=== PATIENT | male | born 1955 | race African-American/Black ===

== ENCOUNTER 2020-06-30 10:53 | Inpatient (IN) | payer MEDICARE, OTHER ==
[~2020-06-30] VITALS: Ht 170.2 cm; Wt 63.5 kg
[~2020-06-30 10:53] MED LIST: ALBU18HF2 INH; AMLO10TA80 PO; ATOR20TA65 PO; BENA20TA10 PO; CARI350T27 PO; DOCU100T9 PO; ECON15CR11 TOP; MONT10TA96 PO; OMEP20CA14 PO
[2020-06-30] MEDS ORDERED: MORPHINE SULFATE 4 MG/ML CPJ (NOT FOR IM USE) IV STA (11:10)
[2020-06-30] MEDS ORDERED: ONDANSETRON HCL 4MG/2ML INJ IV STA (11:10)
[2020-06-30] MEDS ORDERED: SODIUM CHLORIDE 0.9% 1,000 ML IV ONE (11:15)
[2020-06-30] MEDS ORDERED: ONDANSETRON HCL 4MG/2ML INJ IV ONE (11:15)
[2020-06-30 11:54] LABS: BASOPHILS % 0.9 % (0.0-2.0); EOSINOPHILS % 2.4 % (0.0-5.0); HEMATOCRIT. 49.7 % (42.0-52.0); HEMOGLOBIN. 16.4 g/dL (14.0-18.0); LYMPHOCYTES % 22.5 % (20.0-50.0); MEAN CORPUSCULAR VOLUME 93.8 fL (80.0-94.0); MEAN PLATELET VOLUME 7.8 fl (7.4-10.4); MONOCYTES % 9.5 % (2.0-8.0); NEUTROPHILS % 64.7 % (40.0-76.0); PLATELET 271 x1000/uL (130-400); RED CELL DISTRIBUTION WIDTH 16.3 % (11.6-14.6)
[2020-06-30 12:04] LABS: INR 1.2; PARTIAL THROMBOPLASTIN TIME 28.1 sec (23.4-31.0); PROTHROMBIN TIME 12.8 sec (9.6-11.0)
[2020-06-30 12:05] LABS: CHLORIDE 104 mEq/L (98-107)
[2020-06-30 12:08] LABS: CREATINE KINASE 481 IU/L (39-308); ETHANOL BLOOD 50 mg/dL
[2020-06-30] MEDS ORDERED: ETOMIDATE 2MG/ML 10ML VIAL IV ONE (13:15)
[2020-06-30 15:15] LABS: CLARITY URINE CLEAR (CLEAR); COLOR URINE YELLOW (YELLOW); KETONES URINE NEGATIVE (NEGATIVE); LEUKOCYTE ESTERASE URINE NEGATIVE (NEGATIVE); NITRITE URINE NEGATIVE (NEGATIVE); OCCULT BLOOD URINE NEGATIVE (NEGATIVE); PROTEIN URINE TRACE (NEGATIVE); SPECIFIC GRAVITY URINE 1.016 (1.005-1.030); UROBILINOGEN URINE 0.2 E.U./dL (0.2-1.0)
[2020-06-30 15:37] LABS: *AMPHETAMINES SCREEN URINE NEGATIVE (NEGATIVE); *BARBITURATES SCREEN URINE NEGATIVE (NEGATIVE); *BENZODIAZEPINES SCREEN URINE NEGATIVE (NEGATIVE); *COCAINE SCREEN URINE NEGATIVE (NEGATIVE); CANNABINOID URINE SCREEN PRESUMTIVE POSITIVE (NEGATIVE); METHADONE URINE SCREEN NEGATIVE (NEGATIVE); PHENCYCLIDINE URINE SCREEN NEGATIVE (NEGATIVE)
[2020-06-30 15:38] LABS: OPIATES URINE SCREEN PRESUMTIVE POSITIVE (NEGATIVE)
[2020-06-30] MEDS ORDERED: ONDANSETRON HCL 4MG/2ML INJ IV PRN (16:30)
[2020-06-30] MEDS ORDERED: IPRATROPIUM/ALBUTEROL 0.5-3(2.5)MG/3ML NEB HHN PRN (16:30)
[2020-06-30] MEDS ORDERED: ACETAMINOPHEN 325MG TABLET PO PRN (16:30)
[2020-06-30] MEDS ORDERED: T4 PO (17:06)
[2020-06-30 17:14] VITALS: BP 153/76
[2020-06-30] MEDS: AMLODIPINE 10MG TABLET PO SCH (17:31)
[2020-06-30 18:41] VITALS: BP 153/76
[2020-06-30] MEDS: MORPHINE SULFATE 2 MG/ML CPJ (NOT FOR IM USE) IV PRN ×2 (19:14→23:49)
[2020-06-30 20:00] VITALS: BP 130/71
[2020-06-30] MEDS: ENOXAPARIN 40MG/0.4ML SYR SUBCUT SCH (20:37)
[2020-07-01] VITALS: BP 137/72
[2020-07-01 04:00] VITALS: BP 103/67
[2020-07-01 08:00] VITALS: BP 128/68
[2020-07-01] MEDS: AMLODIPINE 10MG TABLET PO SCH (08:31)
[2020-07-01] MEDS: HYDROCODONE/ACETAMINOPHEN 5/325MG TABLET PO PRN ×2 (08:32→18:14)
[2020-07-01 12:00] VITALS: BP 126/70
[2020-07-01] MEDS: MORPHINE SULFATE 2 MG/ML CPJ (NOT FOR IM USE) IV PRN (13:45)
[2020-07-01 15:23] VITALS: BP 118/66
[2020-07-01 20:00] VITALS: BP 130/76
[2020-07-01] MEDS: ENOXAPARIN 40MG/0.4ML SYR SUBCUT SCH (21:00)
[2020-07-02] VITALS: BP 142/73
[2020-07-02 04:00] VITALS: BP 143/71
[2020-07-02] MEDS: MORPHINE SULFATE 2 MG/ML CPJ (NOT FOR IM USE) IV PRN ×3 (04:44→23:07)
[2020-07-02 08:00] VITALS: BP 122/67
[2020-07-02] MEDS: AMLODIPINE 10MG TABLET PO SCH (10:16)
[2020-07-02 12:00] VITALS: BP 131/68
[2020-07-02] MEDS ORDERED: LIDOCAINE HCL/EPINEPHRINE 1%-EPI 1:100,000 20 ML VIAL ONE (12:05)
[2020-07-02] MEDS ORDERED: BUPIVACAINE HCL/PF 0.25% (2.5MG/ML) 10ML ONE (12:05)
[2020-07-02] MEDS ORDERED: VANCOMYCIN HCL 1 GM/VIAL ONE (12:06)
[2020-07-02] MEDS ORDERED: BACITRACIN 50,000 UNITS/VIAL ONE (12:06)
[2020-07-02] MEDS ORDERED: SKIN ADHESIVE 0.7 GM EA TOP ONE (12:27)
[2020-07-02] MEDS ORDERED: CLINDAMYCIN 900 MG PREMIX 50 ML IV ONE (13:07)
[2020-07-02] MEDS ORDERED: FENTANYL CITRATE/PF 50MCG/ML 2ML VIAL ONE (13:09)
[2020-07-02] MEDS ORDERED: LIDOCAINE HCL/PF 1% 10 MG/ML 5ML VIAL ONE (13:09)
[2020-07-02] MEDS ORDERED: PROPOFOL 200MG/20ML VIAL IV ONE (13:09)
[2020-07-02] MEDS ORDERED: LIDOCAINE HCL 2% JELLY 5ML ONE (13:12)
[2020-07-02] MEDS ORDERED: ONDANSETRON HCL 4MG/2ML INJ ONE (13:45)
[2020-07-02] MEDS ORDERED: METOCLOPRAMIDE HCL 10MG/2ML VIAL ONE (13:45)
[2020-07-02] MEDS ORDERED: HYDROCODONE/ACETAMINOPHEN 5/325MG TABLET PO PRN (14:15)
[2020-07-02] MEDS ORDERED: METOCLOPRAMIDE HCL 10MG/2ML VIAL IV NR (14:15)
[2020-07-02] MEDS ORDERED: MEPERIDINE HCL/PF 25MG/ML CPJ IV PRN (14:15)
[2020-07-02 14:33] LABS: *AMPHETAMINES SCREEN URINE NEGATIVE (NEGATIVE); CANNABINOID URINE SCREEN PRESUMTIVE POSITIVE (NEGATIVE)
[2020-07-02 14:34] LABS: *BARBITURATES SCREEN URINE NEGATIVE (NEGATIVE); *BENZODIAZEPINES SCREEN URINE NEGATIVE (NEGATIVE); *COCAINE SCREEN URINE NEGATIVE (NEGATIVE); METHADONE URINE SCREEN NEGATIVE (NEGATIVE); OPIATES URINE SCREEN PRESUMTIVE POSITIVE (NEGATIVE); PHENCYCLIDINE URINE SCREEN NEGATIVE (NEGATIVE)
[2020-07-02] MEDS: HYDROMORPHONE HCL/PF 2MG/ML CPJ IV PRN ×2 (14:55→15:36)
[2020-07-02 16:00] VITALS: BP 121/70
[2020-07-02] MEDS: CEFAZOLIN 1000MG PREMIX 50 ML IV SCH ×2 (17:57→23:06)
[2020-07-02 20:00] VITALS: BP 106/68
[2020-07-02] MEDS ORDERED: CEFAZOLIN SODIUM 1000MG/VIAL IV SCH (22:00)
[2020-07-02] MEDS: ENOXAPARIN 40MG/0.4ML SYR SUBCUT SCH (23:06)
[2020-07-03] VITALS: BP 132/73
[2020-07-03] MEDS: MORPHINE SULFATE 2 MG/ML CPJ (NOT FOR IM USE) IV PRN (03:35)
[2020-07-03 04:00] VITALS: BP 135/82
[2020-07-03 08:00] VITALS: BP 136/74
[2020-07-03] MEDS: AMLODIPINE 10MG TABLET PO SCH (08:27)
[2020-07-03] MEDS: HYDROCODONE/ACETAMINOPHEN 5/325MG TABLET PO PRN ×4 (08:27→20:53)
[2020-07-03] MEDS: CEFAZOLIN 1000MG PREMIX 50 ML IV SCH ×3 (08:27→23:47)
[2020-07-03 12:00] VITALS: BP 100/56
[2020-07-03 16:00] VITALS: BP 122/68
[2020-07-03] MEDS: FOLIC ACID 1MG TABLET PO SCH (17:04)
[2020-07-03] MEDS: DOCUSATE SODIUM 100MG CAPSULE PO SCH (17:04)
[2020-07-03] MEDS: THIAMINE HCL 100MG TABLET PO SCH (17:04)
[2020-07-03 19:45] LABS: HEMATOCRIT. 50.2 % (42.0-52.0); HEMOGLOBIN. 16.7 g/dL (14.0-18.0); MEAN CORPUSCULAR HEMOGLOBIN 31.4 pg (28.0-32.0); MEAN CORPUSCULAR VOLUME 94.2 fL (80.0-94.0); MEAN PLATELET VOLUME 7.7 fl (7.4-10.4); PLATELET 299 x1000/uL (130-400); RED BLOOD CELL COUNT 5.33 mill/uL (4.7-6.1); RED CELL DISTRIBUTION WIDTH 15.7 % (11.6-14.6)
[2020-07-03 20:00] VITALS: BP 129/66
[2020-07-03 20:06] LABS: CHLORIDE 100 mEq/L (98-107)
[2020-07-03] MEDS: ENOXAPARIN 40MG/0.4ML SYR SUBCUT SCH (21:16)
[2020-07-03] MEDS: POLYETHYLENE GLYCOL 3350 (17GM) 1 DOSE PACK PO SCH (21:17)
[2020-07-03 22:12] LABS: PLATELET ESTIMATE NORMAL
[2020-07-04] VITALS: BP 91/58
[2020-07-04] MEDS: HYDROCODONE/ACETAMINOPHEN 5/325MG TABLET PO PRN ×5 (02:43→23:26)
[2020-07-04 04:00] VITALS: BP 118/72
[2020-07-04 08:00] VITALS: BP 114/66
[2020-07-04] MEDS: THIAMINE HCL 100MG TABLET PO SCH (08:59)
[2020-07-04] MEDS: FOLIC ACID 1MG TABLET PO SCH (08:59)
[2020-07-04] MEDS: DOCUSATE SODIUM 100MG CAPSULE PO SCH ×2 (08:59→18:00)
[2020-07-04] MEDS: AMLODIPINE 10MG TABLET PO SCH (08:59)
[2020-07-04] MEDS: CEFAZOLIN 1000MG PREMIX 50 ML IV SCH (09:00)
[2020-07-04 12:00] VITALS: BP 120/70
[2020-07-04 16:00] VITALS: BP 118/7
[2020-07-04 20:00] VITALS: BP 122/73
[2020-07-04] MEDS: POLYETHYLENE GLYCOL 3350 (17GM) 1 DOSE PACK PO SCH (21:59)
[2020-07-04] MEDS: ENOXAPARIN 40MG/0.4ML SYR SUBCUT SCH (21:59)
[2020-07-05] VITALS: BP 124/73
[2020-07-05 08:00] VITALS: BP 121/69
[2020-07-05] MEDS: THIAMINE HCL 100MG TABLET PO SCH (09:27)
[2020-07-05] MEDS: DOCUSATE SODIUM 100MG CAPSULE PO SCH ×2 (09:27→17:32)
[2020-07-05] MEDS: FOLIC ACID 1MG TABLET PO SCH (09:27)
[2020-07-05] MEDS: AMLODIPINE 10MG TABLET PO SCH (09:29)
[2020-07-05] MEDS: MORPHINE SULFATE 2 MG/ML CPJ (NOT FOR IM USE) IV PRN (09:30)
[2020-07-05 12:00] VITALS: BP 124/70
[2020-07-05 16:00] VITALS: BP 129/75
[2020-07-05] MEDS: HYDROCODONE/ACETAMINOPHEN 5/325MG TABLET PO PRN (18:52)
[2020-07-05 18:56] VITALS: BP 137/78
[2020-07-05 20:00] VITALS: BP 122/77
[2020-07-05] MEDS: ENOXAPARIN 40MG/0.4ML SYR SUBCUT SCH (21:50)
== END 2020-07-05 21:55 | DRG 313 ==
LOC: ER 10:53 → 6EST 14:40 → EDBEDREQ 14:43 → ENRESERV 16:05
PROVIDERS: ADMIT Internal Medicine; ATTEND Internal Medicine
PROC: 0QSK04Z Reposition Left Fibula with Internal Fixation Device, Open Approach (ICD-10-PCS; principal; 2020-07-02)
PROC: 0QSH04Z Reposition Left Tibia with Internal Fixation Device, Open Approach (ICD-10-PCS; 2020-07-02)
DX: S82.852A Displaced trimalleolar fracture of left lower leg, initial encounter for closed fracture (principal); F10.129 Alcohol abuse with intoxication, unspecified; M47.812 Spondylosis without myelopathy or radiculopathy, cervical region; J44.9 Chronic obstructive pulmonary disease, unspecified; F12.90 Cannabis use, unspecified, uncomplicated; F17.210 Nicotine dependence, cigarettes, uncomplicated; G62.9 Polyneuropathy, unspecified; M48.02 Spinal stenosis, cervical region; Y90.2 Blood alcohol level of 40-59 mg/100 ml; I10 Essential (primary) hypertension; E78.5 Hyperlipidemia, unspecified; S00.83XA Contusion of other part of head, initial encounter; R26.9 Unspecified abnormalities of gait and mobility; Z20.822 Contact with and (suspected) exposure to COVID-19; Z82.49 Family history of ischemic heart disease and other diseases of the circulatory system; Z88.0 Allergy status to penicillin; Z79.899 Other long term (current) drug therapy; Z71.6 Tobacco abuse counseling; Y08.89XA Assault by other specified means, initial encounter; Y93.89 Activity, other specified; Y92.89 Other specified places as the place of occurrence of the external cause; Y99.8 Other external cause status
CPT/HCPCS: 36415; 70486; 71045; 72170; 73590; 73610; 73630; 76000; 76705; 80048; 80053; 80305; 80320; 81003; 82550; 84484; 85025; 86850; 86900; 87426; 93005; 93306; 97110; 97116; 97162; 97166; 97530; 97535; 99285; J0690; J1170; J1650; J2270; J2405; J2704; J2765; J3010; J3370; J3490; J7030; G0480

== ENCOUNTER 2020-07-05 22:00 | Inpatient (IN) | payer MEDICARE, OTHER ==
[~2020-07-05] VITALS: Ht 170.2 cm; Wt 63.5 kg
[~2020-07-05 22:00] MED LIST changes: +T4 PO
[2020-07-05 22:10] VITALS: BP 126/73
[2020-07-05 22:30] VITALS: BP 126/73
[2020-07-05] MEDS ORDERED: IPRATROPIUM/ALBUTEROL 0.5-3(2.5)MG/3ML NEB HHN PRN (22:30)
[2020-07-05] MEDS ORDERED: ONDANSETRON HCL 4MG/2ML INJ IV PRN (22:30)
[2020-07-05] MEDS: HYDROCODONE/ACETAMINOPHEN 5/325MG TABLET PO PRN (23:08)
[2020-07-06 08:00] VITALS: BP 119/73
[2020-07-06] MEDS: DOCUSATE SODIUM 100MG CAPSULE PO SCH ×2 (08:18→18:43)
[2020-07-06] MEDS: AMLODIPINE 10MG TABLET PO SCH (08:19)
[2020-07-06] MEDS: THIAMINE HCL 100MG TABLET PO SCH (08:19)
[2020-07-06] MEDS: FOLIC ACID 1MG TABLET PO SCH (08:19)
[2020-07-06] MEDS: HYDROCODONE/ACETAMINOPHEN 5/325MG TABLET PO PRN ×3 (08:22→18:43)
[2020-07-06 09:34] LABS: BASOPHILS % 0.4 % (0.0-2.0); EOSINOPHILS % 2.6 % (0.0-5.0); HEMATOCRIT. 49.1 % (42.0-52.0); HEMOGLOBIN. 16.3 g/dL (14.0-18.0); LYMPHOCYTES % 17.5 % (20.0-50.0); MEAN CORPUSCULAR HEMOGLOBIN 30.9 pg (28.0-32.0); MEAN CORPUSCULAR VOLUME 93.4 fL (80.0-94.0); MEAN PLATELET VOLUME 7.4 fl (7.4-10.4); MONOCYTES % 12.6 % (2.0-8.0); NEUTROPHILS % 66.9 % (40.0-76.0); PLATELET 356 x1000/uL (130-400); RED BLOOD CELL COUNT 5.26 mill/uL (4.7-6.1); RED CELL DISTRIBUTION WIDTH 15.3 % (11.6-14.6)
[2020-07-06 09:45] LABS: CHLORIDE 101 mEq/L (98-107)
[2020-07-06 20:00] VITALS: BP 140/80
[2020-07-06] MEDS: POLYETHYLENE GLYCOL 3350 (17GM) 1 DOSE PACK PO SCH (20:14)
[2020-07-06] MEDS: ENOXAPARIN 60MG/0.6ML SYR SUBCUT SCH (20:14)
[2020-07-06] MEDS ORDERED: ENOXAPARIN 40MG/0.4ML SYR SUBCUT SCH ×2 (21:00)
[2020-07-07] MEDS: ENOXAPARIN 60MG/0.6ML SYR SUBCUT SCH ×2 (06:13→17:31)
[2020-07-07 08:00] VITALS: BP 130/80
[2020-07-07 08:05] LABS: BASOPHILS % 0.8 % (0.0-2.0); EOSINOPHILS % 4.1 % (0.0-5.0); HEMATOCRIT. 48.9 % (42.0-52.0); HEMOGLOBIN. 16.2 g/dL (14.0-18.0); MEAN CORPUSCULAR HEMOGLOBIN 31.2 pg (28.0-32.0); MEAN PLATELET VOLUME 7.6 fl (7.4-10.4); MONOCYTES % 13.6 % (2.0-8.0); NEUTROPHILS % 62.5 % (40.0-76.0); PLATELET 345 x1000/uL (130-400); RED CELL DISTRIBUTION WIDTH 15.3 % (11.6-14.6)
[2020-07-07] MEDS: THIAMINE HCL 100MG TABLET PO SCH (08:27)
[2020-07-07] MEDS: DOCUSATE SODIUM 100MG CAPSULE PO SCH ×2 (08:27→17:31)
[2020-07-07] MEDS: FOLIC ACID 1MG TABLET PO SCH (08:27)
[2020-07-07] MEDS: AMLODIPINE 10MG TABLET PO SCH (08:27)
[2020-07-07] MEDS: HYDROCODONE/ACETAMINOPHEN 5/325MG TABLET PO PRN ×2 (08:28→15:20)
[2020-07-07 09:34] LABS: CHLORIDE 102 mEq/L (98-107)
[2020-07-07 09:43] LABS: PHOSPHORUS 2.7 mg/dL (2.5-4.9); TOTAL IRON BINDING CAPACITY 330 ug/dL (250-450)
[2020-07-07 11:50] LABS: PROSTRATE SPECIFIC AG TOTAL 0.76 ng/mL (0.0-4.0)
[2020-07-07] MEDS: CYANOCOBALAMIN 1000MCG/ML VIAL IM SCH (12:48)
[2020-07-07 20:00] VITALS: BP 123/61
[2020-07-07] MEDS: POLYETHYLENE GLYCOL 3350 (17GM) 1 DOSE PACK PO SCH (20:40)
[2020-07-08] MEDS: ENOXAPARIN 60MG/0.6ML SYR SUBCUT SCH ×2 (05:31→17:22)
[2020-07-08 08:00] VITALS: BP 131/86
[2020-07-08] MEDS: AMLODIPINE 10MG TABLET PO SCH (08:10)
[2020-07-08] MEDS: CYANOCOBALAMIN 1000MCG/ML VIAL IM SCH (08:10)
[2020-07-08] MEDS: FOLIC ACID 1MG TABLET PO SCH (08:10)
[2020-07-08] MEDS: DOCUSATE SODIUM 100MG CAPSULE PO SCH ×2 (08:10→17:00)
[2020-07-08] MEDS: THIAMINE HCL 100MG TABLET PO SCH (08:10)
[2020-07-08] MEDS: HYDROCODONE/ACETAMINOPHEN 5/325MG TABLET PO PRN ×2 (08:11→18:10)
[2020-07-08 20:00] VITALS: BP 118/77
[2020-07-08] MEDS: POLYETHYLENE GLYCOL 3350 (17GM) 1 DOSE PACK PO SCH (21:00)
[2020-07-09] MEDS: ENOXAPARIN 60MG/0.6ML SYR SUBCUT SCH ×2 (05:56→16:58)
[2020-07-09 08:30] VITALS: BP 125/68
[2020-07-09] MEDS: CYANOCOBALAMIN 1000MCG/ML VIAL IM SCH (09:47)
[2020-07-09] MEDS: AMLODIPINE 10MG TABLET PO SCH (09:47)
[2020-07-09] MEDS: FOLIC ACID 1MG TABLET PO SCH (09:47)
[2020-07-09] MEDS: THIAMINE HCL 100MG TABLET PO SCH (09:47)
[2020-07-09] MEDS: DOCUSATE SODIUM 100MG CAPSULE PO SCH ×2 (09:47→16:57)
[2020-07-09] MEDS: HYDROCODONE/ACETAMINOPHEN 5/325MG TABLET PO PRN ×2 (10:19→17:13)
[2020-07-09 20:00] VITALS: BP 120/67
[2020-07-09] MEDS: POLYETHYLENE GLYCOL 3350 (17GM) 1 DOSE PACK PO SCH (21:53)
[2020-07-10] MEDS: ENOXAPARIN 60MG/0.6ML SYR SUBCUT SCH ×2 (06:03→17:02)
[2020-07-10 08:00] VITALS: BP 119/79
[2020-07-10 08:57] LABS: BASOPHILS % 0.9 % (0.0-2.0); HEMATOCRIT. 50.3 % (42.0-52.0); HEMOGLOBIN. 16.5 g/dL (14.0-18.0); LYMPHOCYTES % 21.8 % (20.0-50.0); MEAN CORPUSCULAR VOLUME 94.6 fL (80.0-94.0); MEAN PLATELET VOLUME 7.4 fl (7.4-10.4); MONOCYTES % 10.4 % (2.0-8.0); NEUTROPHILS % 61.9 % (40.0-76.0); PLATELET 350 x1000/uL (130-400); RED BLOOD CELL COUNT 5.32 mill/uL (4.7-6.1); RED CELL DISTRIBUTION WIDTH 15.1 % (11.6-14.6)
[2020-07-10] MEDS: HYDROCODONE/ACETAMINOPHEN 5/325MG TABLET PO PRN ×2 (08:58→15:47)
[2020-07-10] MEDS: FOLIC ACID 1MG TABLET PO SCH (08:59)
[2020-07-10] MEDS: DOCUSATE SODIUM 100MG CAPSULE PO SCH ×2 (08:59→17:02)
[2020-07-10] MEDS: CYANOCOBALAMIN 1000MCG/ML VIAL IM SCH (08:59)
[2020-07-10] MEDS: THIAMINE HCL 100MG TABLET PO SCH (08:59)
[2020-07-10] MEDS: AMLODIPINE 10MG TABLET PO SCH (08:59)
[2020-07-10 09:03] LABS: CHLORIDE 106 mEq/L (98-107)
[2020-07-10 20:00] VITALS: BP 122/74
[2020-07-10] MEDS: POLYETHYLENE GLYCOL 3350 (17GM) 1 DOSE PACK PO SCH (22:22)
[2020-07-11] MEDS: ENOXAPARIN 60MG/0.6ML SYR SUBCUT SCH ×2 (06:14→17:55)
[2020-07-11 08:00] VITALS: BP 133/77
[2020-07-11] MEDS: CYANOCOBALAMIN 1000MCG/ML VIAL IM SCH (08:10)
[2020-07-11] MEDS: AMLODIPINE 10MG TABLET PO SCH (08:10)
[2020-07-11] MEDS: THIAMINE HCL 100MG TABLET PO SCH (08:10)
[2020-07-11] MEDS: ACETAMINOPHEN 325MG TABLET PO PRN (08:10)
[2020-07-11] MEDS: DOCUSATE SODIUM 100MG CAPSULE PO SCH ×2 (08:10→17:55)
[2020-07-11] MEDS: FOLIC ACID 1MG TABLET PO SCH (08:10)
[2020-07-11] MEDS: HYDROCODONE/ACETAMINOPHEN 5/325MG TABLET PO PRN ×2 (09:21→15:54)
[2020-07-11 20:00] VITALS: BP 130/73
[2020-07-11] MEDS: POLYETHYLENE GLYCOL 3350 (17GM) 1 DOSE PACK PO SCH (20:56)
[2020-07-12] MEDS: ENOXAPARIN 60MG/0.6ML SYR SUBCUT SCH ×2 (05:32→17:07)
[2020-07-12] MEDS: HYDROCODONE/ACETAMINOPHEN 5/325MG TABLET PO PRN ×4 (05:33→20:12)
[2020-07-12 07:56] VITALS: BP 124/72
[2020-07-12] MEDS: AMLODIPINE 10MG TABLET PO SCH (08:20)
[2020-07-12] MEDS: CYANOCOBALAMIN 1000MCG/ML VIAL IM SCH (08:20)
[2020-07-12] MEDS: THIAMINE HCL 100MG TABLET PO SCH (08:21)
[2020-07-12] MEDS: ACETAMINOPHEN 325MG TABLET PO PRN (08:21)
[2020-07-12] MEDS: DOCUSATE SODIUM 100MG CAPSULE PO SCH ×2 (08:21→17:07)
[2020-07-12] MEDS: FOLIC ACID 1MG TABLET PO SCH (08:21)
[2020-07-12 19:10] LABS: 25-HYDROXY VITAMIN D3 12 ng/mL (.)
[2020-07-12 20:10] VITALS: BP 118/71
[2020-07-12] MEDS: POLYETHYLENE GLYCOL 3350 (17GM) 1 DOSE PACK PO SCH (20:11)
[2020-07-13] MEDS: ENOXAPARIN 60MG/0.6ML SYR SUBCUT SCH ×2 (05:48→16:45)
[2020-07-13] MEDS: HYDROCODONE/ACETAMINOPHEN 5/325MG TABLET PO PRN ×4 (05:49→21:31)
[2020-07-13 08:00] VITALS: BP 119/71
[2020-07-13] MEDS: AMLODIPINE 10MG TABLET PO SCH (09:09)
[2020-07-13] MEDS: FOLIC ACID 1MG TABLET PO SCH (09:09)
[2020-07-13] MEDS: THIAMINE HCL 100MG TABLET PO SCH (09:09)
[2020-07-13] MEDS: DOCUSATE SODIUM 100MG CAPSULE PO SCH ×2 (09:09→16:45)
[2020-07-13] MEDS: CYANOCOBALAMIN 1000MCG/ML VIAL IM SCH (09:09)
[2020-07-13] MEDS ORDERED: ERGOCALCIFEROL 50000UNITS CAPSULE PO SCH (14:30)
[2020-07-13 14:53] LABS: BASOPHILS % 0.9 % (0.0-2.0); HEMATOCRIT. 43.4 % (42.0-52.0); HEMOGLOBIN. 14.3 g/dL (14.0-18.0); LYMPHOCYTES % 25.2 % (20.0-50.0); MEAN CORPUSCULAR HEMOGLOBIN 30.7 pg (28.0-32.0); MEAN CORPUSCULAR VOLUME 93.3 fL (80.0-94.0); MEAN PLATELET VOLUME 7.2 fl (7.4-10.4); MONOCYTES % 10.8 % (2.0-8.0); NEUTROPHILS % 58.1 % (40.0-76.0); PLATELET 326 x1000/uL (130-400); RED BLOOD CELL COUNT 4.65 mill/uL (4.7-6.1); RED CELL DISTRIBUTION WIDTH 14.7 % (11.6-14.6)
[2020-07-13 15:12] LABS: CHLORIDE 105 mEq/L (98-107)
[2020-07-13] MEDS ORDERED: AMLO10TA80 PO (16:30)
[2020-07-13] MEDS ORDERED: HYDR-4009 MT (16:30)
[2020-07-13] MEDS ORDERED: XAR15 MT (16:30)
[2020-07-13 20:00] VITALS: BP 118/68
[2020-07-13] MEDS: POLYETHYLENE GLYCOL 3350 (17GM) 1 DOSE PACK PO SCH (21:31)
[2020-07-13] MEDS: ACETAMINOPHEN 325MG TABLET PO PRN (23:13)
[2020-07-14] MEDS: ENOXAPARIN 60MG/0.6ML SYR SUBCUT SCH (05:43)
[2020-07-14] MEDS: HYDROCODONE/ACETAMINOPHEN 5/325MG TABLET PO PRN (05:44)
[2020-07-14 08:00] VITALS: BP 120/70
[2020-07-14] MEDS: DOCUSATE SODIUM 100MG CAPSULE PO SCH (09:19)
[2020-07-14] MEDS: THIAMINE HCL 100MG TABLET PO SCH (09:19)
[2020-07-14] MEDS: FOLIC ACID 1MG TABLET PO SCH (09:19)
[2020-07-14] MEDS: AMLODIPINE 10MG TABLET PO SCH (09:20)
[2020-07-14] MEDS: ACETAMINOPHEN 325MG TABLET PO PRN (13:50)
[2020-07-14 14:00] VITALS: BP 120/70
== END 2020-07-14 15:40 | disposition home health service (06) | DRG 115 ==
PROVIDERS: ADMIT Physical Medicine & Rehabilitation Spinal Cord Injury Medicine; ATTEND Internal Medicine
DX: S09.90XA Unspecified injury of head, initial encounter (principal); S82.852A Displaced trimalleolar fracture of left lower leg, initial encounter for closed fracture; Y90.2 Blood alcohol level of 40-59 mg/100 ml; M48.02 Spinal stenosis, cervical region; E43 Unspecified severe protein-calorie malnutrition; F10.20 Alcohol dependence, uncomplicated; F12.90 Cannabis use, unspecified, uncomplicated; F17.210 Nicotine dependence, cigarettes, uncomplicated; G62.9 Polyneuropathy, unspecified; I10 Essential (primary) hypertension; I82.431 Acute embolism and thrombosis of right popliteal vein; J44.9 Chronic obstructive pulmonary disease, unspecified; K08.9 Disorder of teeth and supporting structures, unspecified; M47.812 Spondylosis without myelopathy or radiculopathy, cervical region
CPT/HCPCS: 36415; 73600; 80048; 80053; 82306; 82607; 82728; 82746; 83540; 83550; 83735; 84100; 84134; 84153; 84443; 85025; 93970; 97110; 97116; 97162; 97166; 97530; 97535; J1650; J3420; G0103